=== PATIENT | female | born 1955 | race Caucasian/White ===

== ENCOUNTER 2018-06-12 23:29 | Emergency (ER) | payer OTHER, SELFPAY ==
[2018-06-12 23:38] VITALS: BMI 31.6
--- NOTE | 2018-06-13 00:16 | ED PDOC ---
Arrival/HPI - General Chief Complaint: Upper Extremity Problem/Injury Time Seen by Provider: 06/12/18 23:57 Historian: Patient - History of Present Illness Narrative History of Present Illness (Text): 06/13/18 23:50 62 year old female, with no significant past medical history, presents to the emergency department complaining of left wrist pain s/p trip and fall. Patient states she was making her bed when she tripped and fell injuring her left wrist. She denies any other injury. Patient denies any back pain, neck pain, headache, dizziness, or any other complaints. Time/Duration: Prior to Arrival Symptom Onset: Sudden Symptom Course: Unchanged Activities at Onset: Light Context: Tripped Past Medical History - Provider Review Nursing Documentation Reviewed: Yes - Tetanus Immunization Tetanus Immunization: Unknown - Cardiac Hx Cardiac Disorders: No Hx Angina: No Hx Cardiac Arrhythmia: No Hx Circulatory Problems: No Hx Congestive Heart Failure: No Hx Heart Murmur: No Hx Heart Transplant: No Hx Hypertension: Yes Hx Internal Defibrillator: No Hx Mitral Valve Prolapse: No Hx Pacemaker: No Hx Peripheral Edema: No Hx Peripheral Vascular Disease: No - Pulmonary Hx Respiratory Disorders: No Hx Asthma: No Hx Bronchitis: No Hx Chronic Obstructive Pulmonary Disease (COPD): No Hx Emphysema: No Hx Pneumonia: No Hx Respiratory Aspiration: No Hx Respiratory Tract Infection: No Hx Sleep Apnea: No Hx Tuberculosis: No - Neurological Hx Neurological Disorder: No Hx Alzheimer's Disease: No HX Cerebrovascular Accident: No Hx Dementia: No Hx Dizziness: No Hx Meningitis: No Hx Migraine: No Hx Parkinson's Disease: No Hx Seizures: No Hx Transient Ischemic Attacks (TIA): Yes - HEENT Hx HEENT Disorder: No Hx Blind: No Hx Cataracts: No Hx Deafness: No Hx Difficulty Chewing: No Hx Epistaxis: No Hx Glaucoma: No Hx Macular Degeneration: No - Renal Hx Renal Disorder: No Hx Dialysis: No Hx Kidney Stones: No Hx Neurogenic Bladder: No Hx Pyelonephritis: No Hx Renal Cancer: No Hx Renal Failure: No - Endocrine/Metabolic Hx Endocrine Disorders: No Hx Adrenal Cancer: No Hx Diabetes Insipidus: No Hx Diabetes Mellitus Type 1: No Hx Diabetes Mellitus Type 2: No Hx Hyperthyroidism: No Hx Hypothyroidism: Yes - Hematological/Oncological Hx Blood Disorders: No Hx AIDS: No Hx Anemia: No Hx Cancer: Yes (breast) Hx Cirrhosis: No Hx Hemophilia: No Hx Hepatitis A: No Hx Hepatitis B: No Hx Hepatitis C: No Hx Metastasis: No Hx Shingles: No Hx Sickle Cell Disease: No Hx Unexplained Bleeding: No - Integumentary Hx Dermatological Disorder: No Hx Basal Cell Carcinoma: No Hx Eczema: No Hx Melanoma: No Hx Psoriasis: No Hx Squamous Cell Carcinoma: No - Musculoskeletal/Rheumatological Hx Musculoskeletal Disorders: No Hx Arthritis: No Hx Back Pain: No Hx Degenerative Joint Disease: No Hx Falls: No Hx Fractures: No Hx Gout: No Hx Herniated Disk: No Hx Myasthenia Gravis: No Hx Osteoarthritis: No Hx Osteomyelitis: No Hx Osteoporosis: No Hx Rhabdomyolysis: No Hx Spinal Stenosis: No Hx Unsteady Gait: No - Gastrointestinal Hx Gastrointestinal Disorders: No Hx Colostomy: No Hx Crohn's Disease: No Hx Diverticulitis: No Hx Gall Bladder Disease: No Hx Gastroesophageal Reflux: No Hx Gastrointestinal Ulcer: No Hx Ileostomy: No Hx Liver Failure: No Hx Pancreatitis: No HX Swallowing Problems: No - Genitourinary/Gynecological Hx Genitourinary Disorders: No Hx Hematuria: No Hx Incontinence: No Hx Prostate Problems: No Hx Sexually Transmitted Diseases: No Hx Urinary Tract Infection: No - Psychiatric Hx Psychophysiologic Disorder: No Hx Anxiety: No Hx Bipolar Disorder: No Hx Depression: Yes Hx Emotional Abuse: No Hx Hallucinations: No Hx Panic Disorder: No Hx Post Traumatic Stress Disorder: No Hx Psychosis: No Hx Physical Abuse: No Hx Schizophrenia: No Hx Sexual Abuse: No Hx Substance Use: No - Surgical History Hx Amputation: No Hx Appendectomy: No Hx Cardiac Catheterization: No Hx Cholecystectomy: No Hx Coronary Stent: No Hx Gastric Bypass Surgery: No Hx Hysterectomy: No Hx Joint Replacement: No Hx Kidney Transplant: No Hx Liver Transplant: No Hx Mastectomy: No Hx Musculoskeletal Surgery: No Hx Open Heart Surgery: No Hx Orthopedic Surgery: No Hx Splenectomy: No Hx Valve Replacement: No - Anesthesia Hx Anesthesia: Yes Hx Anesthesia Reactions: No Hx Malignant Hyperthermia: No Family/Social History - Physician Review Nursing Documentation Reviewed: Yes Family/Social History: No Known Family HX Smoking Status: Unknown If Ever Smoked Hx Alcohol Use: No Hx Substance Use: No Hx Substance Use Treatment: No Allergies/Home Meds Allergies/Adverse Reactions: Allergies No Known Allergies Allergy (Verified 06/12/18 23:39) Review of Systems - Physician Review All systems were reviewed & negative as marked: Yes - Review of Systems Musculoskeletal: Other (left wrist pain ). absent: Back Pain, Neck Pain Neurological: absent: Headache, Dizziness Physical Exam Vital Signs Reviewed: Yes Vital Signs Temp Pulse Resp BP Pulse Ox 06/13/18 02:57 97.6 F 100 H 18 131/84 99 06/12/18 23:40 97.5 F L 119 H 16 135/81 97 Temperature: Afebrile Blood Pressure: Normal Pulse: Tachycardic Respiratory Rate: Normal Appearance: Positive for: Well-Appearing, Non-Toxic, Comfortable Pain Distress: None Mental Status: Positive for: Alert and Oriented X 3 - Systems Exam Head: Present: Atraumatic, Normocephalic Pupils: Present: PERRL Extroacular Muscles: Present: EOMI Conjunctiva: Present: Normal Mouth: Present: Moist Mucous Membranes Neck: Present: Normal Range of Motion Respiratory/Chest: Present: Clear to Auscultation, Good Air Exchange. No: Respiratory Distress, Accessory Muscle Use Cardiovascular: Present: Regular Rate and Rhythm, Normal S1, S2. No: Murmurs Abdomen: No: Tenderness, Distention, Peritoneal Signs Back: Present: Normal Inspection Upper Extremity: Present: Normal ROM, NORMAL PULSES (Good radial pulses), Tenderness (ulnar aspect of left wrist). No: Cyanosis, Edema Lower Extremity: Present: Normal Inspection. No: Edema Neurological: Present: GCS=15, CN II-XII Intact, Speech Normal Skin: Present: Warm, Dry, Normal Color. No: Rashes Psychiatric: Present: Alert, Oriented x 3, Normal Insight, Normal Concentration Medical Decision Making ED Course and Treatment: 06/12/18 23:48 Impression: 62 year old female presents complaining of left wrist pain s/p trip and fall while making a bed. Plan: -- Wrist Left 3V X-ray -- Reassess and disposition Progress Notes: EXAM: XR Left Wrist Complete, 3 or more Views Dictated and Authenticated by: Eliseo Lakhani MD 06/13/2018 2:01 AM IMPRESSION: 1. Dorsal impaction fracture of the distal radius with intra-articular involvement. There is also a mildly distracted fracture of the ulnar styloid. 2. Osteopenia. 3. Early degenerative changes at interphalangeal joints of the fingers. 06/13/18 02:57 Fiberglass L wrist volar splint placed by EMT. Patient neurovascularly intact post splint placement. On re-evaluation, patient is in no acute distress. I have discussed the results and plan with the patient, who expresses understanding. Patient in agreement with plan to be discharged home. Patient is stable for discharge. Patient was instructed to follow up with physician or return if symptoms worsen or new concerning symptoms arise. Rx written for percocet PRN for severe pain, otherwise take acetaminophen or NSAIDs at home. - RAD Interpretation Radiology Orders: 06/12/18 23:58 WRIST, LEFT 3 VIEWS [RAD] Stat - Medication Orders Current Medication Orders: Discontinued Medications Acetaminophen (Tylenol 325mg Tab) 650 mg PO STAT STA Stop: 06/13/18 01:54 Last Admin: 06/13/18 02:37 Dose: 650 mg [facility] Pain/Vitals Document 06/13/18 02:37 RG (Rec: 06/13/18 02:37 DEANA [id number]) Pain Reassessment Is This A Pain ReAssessment? Yes Pain Scale Used Pain Scale Used Numeric Location Left, Right or Bilateral Left Pain Location Body Site Wrist Description Constant Intensity 6 Scale Used Numeric Pain Behavior Irritability Withdrawal from Touch Aggravating Factors Changing Position Contant Oxycodone HCl (Oxycodone Immediate Release Tab) 5 mg PO STAT STA Stop: 06/13/18 02:31 Last Admin: 06/13/18 02:49 Dose: 5 mg [facility] Pain Assessment Document 06/13/18 02:49 RG (Rec: 06/13/18 02:49 DEANA [id number]) Pain Reassessment Is this a pain reassessment? Yes Sleep Is patient sleeping during reassessment? No Presence of Pain Presence of Pain Yes Location Left, Right or Bilateral Left Pain Location Body Site Wrist Description Pain Behavior Irritability Withdrawal from Touch - Scribe Statement The provider has reviewed the documentation as recorded by the Tracieibe Rudolph Casas Provider Scribe Attestation: All medical record entries made by the Tracieibthierno were at my direction and personally dictated by me. I have reviewed the chart and agree that the record accurately reflects my personal performance of the history, physical exam, medical decision making, and the department course for this patient. I have also personally directed, reviewed, and agree with the discharge instructions and disposition. Disposition/Present on Arrival - Present on Arrival Any Indicators Present on Arrival: No History of DVT/PE: No History of Uncontrolled Diabetes: No Urinary Catheter: No History of Decub. Ulcer: No History Surgical Site Infection Following: None - Disposition Have Diagnosis and Disposition been Completed?: Yes Diagnosis: Fracture of left radius and ulna Disposition: HOME/ ROUTINE Disposition Time: 03:10 Condition: FAIR Discharge Instructions (ExitCare): Wrist Fracture (DC) Print Language: CHADIAN Additional Instructions: LON GOMEZ, thank you for letting us take care of you today. Your provider was Amy Baum MD and you were treated for fall ( left arm injury). The emergency medical care you received today was directed at your acute symptoms. If you were prescribed any medication, please fill it and take as directed. It may take several days for your symptoms to resolve. Return to the Emergency Department if your symptoms worsen, do not improve, or if you have any other problems. Please contact your doctor or call one of the physicians/clinics you have been referred to that are listed on the Patient Visit Information form that is included in your discharge packet. Bring any paperwork you were given at discharge with you along with any medications you are taking to your follow up visit. Our treatment cannot replace ongoing medical care by a primary care provider outside of the emergency department. Thank you for allowing the [facility] team to be part of your care today. If you had an X-Ray or CT scan: A Radiologist will review the ED reading if any change in treatment is needed we will contact you. If you had a blood, urine, or wound culture: It will take several days for the results, if any change in treatment is needed we will contact you. If you had an STI test: It will take 48 hours for the results. Please call after 1 week if you have not heard back. Prescriptions: oxyCODONE/Acetaminophen [Percocet 5/325 mg Tab] 1 ea PO Q6H PRN #7 tab PRN Reason: Pain, Severe (8-10) Referrals: FAMILY PROVIDER,NO [Primary Care Provider] - Follow up with primary Kelvin Cruz MD [Staff Provider] - Follow up with primary Forms: [employer] (Mongolian)
[2018-06-13] MEDS ORDERED: oxyCODONE 5 mg Immediate Release Tab PO STA (02:30)
[2018-06-13 02:58] VITALS: BP 131/84; PULSE 100; RESP 18; TEMP 97.6; O2SAT 99
--- NOTE | 2018-06-13 15:25 | RAD ---
Date of service: 06/13/2018 PROCEDURE: Left Wrist Radiographs. HISTORY: pain with injury COMPARISON: None. FINDINGS: BONES: Comminuted distracted fracture at the distal left radius extending to the articular surface and associated with mild displacement noted. There is also displaced fracture at the left ulnar styloid. JOINTS: Mild arthritic degenerative changes SOFT TISSUES: Soft tissue swelling noted around the left breast OTHER FINDINGS: None. IMPRESSION: Acute distracting mildly displaced fracture at the distal left radius extending to the articular surface. Mildly displaced left ulnar styloid fracture.
== END 2018-06-13 03:10 | disposition home or self-care (01) ==
LOC: ED 23:29
DX: S52.572A Other intraarticular fracture of lower end of left radius, initial encounter for closed fracture (principal); S52.612A Displaced fracture of left ulna styloid process, initial encounter for closed fracture; W01.0XXA Fall on same level from slipping, tripping and stumbling without subsequent striking against object, initial encounter; E03.9 Hypothyroidism, unspecified; I10 Essential (primary) hypertension; Z85.3 Personal history of malignant neoplasm of breast

== ENCOUNTER 2018-07-12 10:43 | Emergency (ER) | payer OTHER ==
[2018-07-12 11:12] VITALS: BMI 31.4
[2018-07-12 11:13] VITALS: BP 122/71; PULSE 90; RESP 18; TEMP 97.9
--- NOTE | 2018-07-12 11:16 | ED PDOC ---
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 Her nondominant left index finger radial side nail is swollen and tender. There is no paronychia or felon appreciated. There is no erythema or warmth. There is tenderness. Nail appears to be possibly fungal infection or beginning ingrown. There is no streaking. Full range of motion. Suggested to patient that she will need to see a hand surgeon Past Medical History - Tetanus Immunization Tetanus Immunization: Unknown - Cardiac Hx Cardiac Arrhythmia: No Hx Congestive Heart Failure: No Hx Hypertension: Yes Hx Mitral Valve Prolapse: No Hx Pacemaker: No Hx Peripheral Edema: No - Pulmonary Hx Asthma: No Hx Bronchitis: No Hx Chronic Obstructive Pulmonary Disease (COPD): No Hx Emphysema: No Hx Pneumonia: No Hx Sleep Apnea: No - Neurological Hx Alzheimer's Disease: No Hx Dementia: No Hx Migraine: No Hx Parkinson's Disease: No Hx Seizures: No Hx Transient Ischemic Attacks (TIA): Yes - HEENT Hx HEENT Disorder: No Hx Blind: No Hx Cataracts: No Hx Deafness: No Hx Difficulty Chewing: No Hx Epistaxis: No Hx Glaucoma: No Hx Macular Degeneration: No - Renal Hx Renal Disorder: No Hx Kidney Stones: No - Endocrine/Metabolic Hx Hyperthyroidism: No Hx Hypothyroidism: Yes - Hematological/Oncological Hx Anemia: No Hx Sickle Cell Disease: No - Integumentary Hx Dermatological Disorder: No Hx Basal Cell Carcinoma: No Hx Eczema: No Hx Melanoma: No Hx Psoriasis: No Hx Squamous Cell Carcinoma: No - Musculoskeletal/Rheumatological Hx Arthritis: No Hx Fractures: No Hx Osteoporosis: No - Gastrointestinal Hx Crohn's Disease: No Hx Diverticulitis: No Hx Gall Bladder Disease: No Hx Gastrointestinal Ulcer: No Hx Pancreatitis: No - Genitourinary/Gynecological Hx Sexually Transmitted Diseases: No - Psychiatric Hx Anxiety: No Hx Bipolar Disorder: No Hx Depression: Yes Hx Paranoia: No Hx Post Traumatic Stress Disorder: No Hx Schizophrenia: No Hx Substance Use: No - Surgical History Hx Appendectomy: No Hx Cholecystectomy: No Hx Coronary Stent: No - Anesthesia Hx Anesthesia: Yes Hx Anesthesia Reactions: No Hx Malignant Hyperthermia: No Family/Social History - Physician Review Nursing Documentation Reviewed: Yes Family/Social History: Unknown Family HX Smoking Status: Never Smoked Hx Alcohol Use: No Hx Substance Use: No Hx Substance Use Treatment: No Allergies/Home Meds Allergies/Adverse Reactions: Allergies No Known Allergies Allergy (Verified 06/14/18 13:06) Review of Systems - Physician Review All systems were reviewed & negative as marked: Yes Physical Exam Vital Signs Temp Pulse Resp BP Pulse Ox 07/12/18 11:12 97.9 F 90 18 122/71 97 Temperature: Afebrile Blood Pressure: Normal Pulse: Regular Respiratory Rate: Normal Appearance: Positive for: Well-Appearing, Non-Toxic, Comfortable Pain Distress: None Mental Status: Positive for: other (Awake and alert) - Systems Exam Upper Extremity: Present: Normal ROM, NORMAL PULSES, Tenderness (Mild left radial index finger nail tender and swollen and overgrown. No erythema or warmth. No paronychia or felon.), Neurovascularly Intact, Other. No: Normal Inspection, Cyanosis, Edema, Swelling, Erythema, Deformity Medical Decision Making ED Course and Treatment: 07/12/18 11:16 Patient will be given a prescription for pain medicine and follow-up with hand surgeon and PMD or oncologist. Disposition/Present on Arrival - Present on Arrival Any Indicators Present on Arrival: No History of DVT/PE: No History of Uncontrolled Diabetes: No Urinary Catheter: No History of Decub. Ulcer: No History Surgical Site Infection Following: None - Disposition Have Diagnosis and Disposition been Completed?: Yes Diagnosis: Fungal infection, Onychomycosis Disposition: HOME/ ROUTINE Disposition Time: 11:16 Patient Plan: Discharge Condition: GOOD Discharge Instructions (ExitCare): Fungal Nail Infections Additional Instructions: Follow with a hand surgeon. Follow-up with PMD and oncologist. Prescriptions: Tramadol HCl [Ultram] 50 mg PO Q6 PRN #10 tab PRN Reason: Pain Referrals: Hector Panda MD [Staff Provider] - Follow up with primary
[2018-07-12 11:47] VITALS: O2SAT 98
== END 2018-07-12 11:46 | disposition home or self-care (01) ==
LOC: ED 10:43
DX: B35.1 Tinea unguium (principal); B49 Unspecified mycosis